=== PATIENT | female | born 1995 | race Caucasian/White ===

== ENCOUNTER 2021-09-24 13:46 | Emergency (ER) | payer OTHER, SELFPAY ==
--- NOTE | ~2021-09-24 | XR_ITS ---
EXAMINATION: XR KNEE, LEFT CLINICAL INFORMATION: Pain after fall COMPARISON: None TECHNIQUE: Four views of the left knee. FINDINGS: There is no evidence of acute fracture or dislocation of the left knee. Left knee joint spaces are maintained. No significant effusion is appreciated. XR/XR knee LT 4V IMPRESSION: No significant bony abnormality of the left knee identified.
[2021-09-24 14:16] VITALS: BP 142/93; PULSE 101; RESP 18; TEMP 36.6; O2SAT 98; BMI 39.5
--- NOTE | 2021-09-24 14:56 | ED.LOWEXIN ---
HPI - Extremity Injury (Lower) General Chief Complaint: Extremity Injury, Lower Stated Complaint: l knee pain Time Seen by Provider: 09/24/21 14:56 History of Present Illness HPI Narrative: Patient complains of left knee pain after twisting it and falling on it while skiing several days ago, no other injury no other complaint Related Data Previous Rx's Medication Instructions Recorded acetaminophen 500 mg tablet 1,000 mg PO QID PRN #30 tab 09/24/21 ibuprofen 600 mg tablet 600 mg PO Q6H PRN #20 tab 09/24/21 Allergies Allergy/AdvReac Type Severity Reaction Status Date / Time cephalexin Allergy Swelling Verified 09/24/21 14:20 Review of Systems Review of Systems: Positive for left knee pain Negatives are no head injury no headache no neck pain no back pain no numbness weakness or tingling no other extremity injuries Yes all other systems are reviewed and are negative COUNT INCLUDES [facility] Past Medical History Source: nursing notes reviewed Medical History (Updated 09/25/21 @ 00:01 by Background Daemon) No known health problems Social History Social History Advance Directives: No Advance Directives Information Provided: Yes Patient : No Physical Exam Vital Signs: Vital Signs: Last Vital Signs Temp 97.9 F 09/24/21 14:16 Pulse 101 H 09/24/21 14:16 Resp 18 09/24/21 14:16 BP 142/93 H 09/24/21 14:16 Pulse Ox 98 09/24/21 14:16 BMI result Body Mass Index 39.5 General appearance is no acute distress Head is normocephalic atraumatic Neck is supple nontender The back full range of motion nontender Respiratory no distress Extremities the left knee head medial tenderness and a small ecchymotic area, there was no significant swelling or effusion, there was no ligamentous laxity, quadriceps and patellar tendons appear to be intact, gait is with a mild limp but she ambulates without assistance, skin is intact and neurovascular intact distal Other extremities normal Neuro no focal motor sensory deficits Course Course Course Narrative: Left knee x-ray was negative and well-appearing patient is advised to follow with orthopedist Discharge Plan Discharge Clinical Impression: Left knee sprain Patient Disposition: Home, Self-Care Additional Instructions: Apply ice, elevate leg Follow with orthopedist for further evaluation Return any time any concerns Prescriptions: New ibuprofen 600 mg tablet 600 mg PO Q6H PRN (Reason: pain) Qty: 20 0RF acetaminophen 500 mg tablet 1,000 mg PO QID PRN (Reason: pain) Qty: 30 0RF Referrals: Javier Galvez MD [Physician] - 10 days (Left knee sprain) Interventions: ED Discharge Assessment Last Done: 09/24/21 15:28 Discharge Date/Time: 09/24/21 15:30
== END 2021-09-24 15:30 | disposition home or self-care (01) ==
PROVIDERS: Emergency Provider Emergency Medicine
DX: S83.92XA Sprain of unspecified site of left knee, initial encounter (principal); M25.562 Pain in left knee; X50.1XXA Overexertion from prolonged static or awkward postures, initial encounter; Y93.23 Activity, snow (alpine) (downhill) skiing, snowboarding, sledding, tobogganing and snow tubing; Y92.838 Other recreation area as the place of occurrence of the external cause; Y99.9 Unspecified external cause status
CPT/HCPCS: 73564; 99283

== ENCOUNTER 2021-10-14 09:15 | Outpatient (REF) | payer OTHER, SELFPAY ==
--- NOTE | ~2021-10-14 | XR_ITS ---
EXAMINATION: XR knee LT 1V CLINICAL INFORMATION: Pain after fall. COMPARISON: Left knee radiographs 09/24/2021. TECHNIQUE: Single sunrise view of the right knee. FINDINGS: A single patellar sunrise radiographs demonstrates normal patellofemoral alignment without evidence of patellofemoral arthropathic changes. No fractures identified. No specific prepatellar soft tissue inflammatory changes noted accounting for visualized body habitus. No embedded radiopaque foreign bodies noted. XR/XR knee LT 1V IMPRESSION: Single patellar-sunrise radiographs of the right knee demonstrate no abnormalities.
== END 2021-10-14 09:16 | disposition home or self-care (01) ==
LOC: HO.HOSX 09:15
PROVIDERS: Visit Provider Physician Assistant
DX: M23.92 Unspecified internal derangement of left knee (principal)
CPT/HCPCS: 73560

== ENCOUNTER 2021-10-28 18:53 | Outpatient (REF) | payer OTHER, SELFPAY ==
--- NOTE | ~2021-10-28 | MR_ITS ---
EXAMINATION: MR KNEE WITHOUT CONTRAST, LEFT CLINICAL INFORMATION: Left knee pain and swelling following an injury in August of 2021. Internal derangement. COMPARISON: None TECHNIQUE: MRI of the knee without contrast was performed using routine sequences on a high-field scanner. FINDINGS: MENISCI: Medial Meniscus: Intact Lateral Meniscus: Intact LIGAMENTS: Cruciate: Intact. Collateral: There is attenuation of the medial collateral ligament with fluid along the undersurface, consistent with a grade 2 sprain/partial tear. Intact fibular collateral ligament. EXTENSOR MECHANISM: Intact ARTICULAR CARTILAGE/BONE: Patellofemoral Compartment: Normal Medial Compartment: Normal Lateral Compartment: Normal Within the distal femoral metaphysis there is an ovoid, somewhat lobulated focus measuring 2.0 x 1.7 x 2.2 cm. This demonstrates intermediate T1 and high T2 signal with tiny internal foci of normal marrow signal. 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 No associated edema or aggressive features. JOINT FLUID AND BURSAE: Normal MR/MR knee LT wo con IMPRESSION: Acute grade 2 sprain/partial tear of the medial collateral ligament.
== END 2021-10-28 18:54 | disposition home or self-care (01) ==
LOC: HO.MRI 18:53
PROVIDERS: Visit Provider Physician Assistant
DX: M23.92 Unspecified internal derangement of left knee (principal)
CPT/HCPCS: 73721

== ENCOUNTER → 2021-11-19 10:02 | Outpatient (BNVA) | payer OTHER, SELFPAY | PROVIDERS: Visit Provider Physician Assistant | DX: Z13.89 Encounter for screening for other disorder (principal) ==